=== PATIENT | female | born 1975 | race Hispanic/Latino ===

== ENCOUNTER 2021-07-26 21:02 | Emergency (ER) | payer MEDICAID, OTHER ==
[~2021-07-26] VITALS: Ht 152.4 cm; Wt 113.4 kg
[2021-07-26] MEDS ORDERED: ACETAMINOPHEN 500 MG TABLET PO ONE (23:00)
[2021-07-26 23:35] LABS: APPEARANCE,URINE Clear (CLEAR); BILIRUBIN,URINE Negative (NEGATIVE); COLOR,URINE Yellow (YELLOW); GLUCOSE, URINE (UA) Negative (NEGATIVE); KETONES,URINE Negative (NEGATIVE); LEUKOCYTE ESTERASE ,URINE Negative (NEGATIVE); NITRATE,URINE Negative (NEGATIVE); OCCULT BLOOD,URINE Negative (NEGATIVE); PH,URINE 5.5 (5.0-8.0); PROTEIN,URINE Negative (NEGATIVE); UROBILINOGEN,URINE 0.2 mg/dL (0.2-1.0)
[2021-07-26 23:36] LABS: HCG,QUAL RESULT NEGATIVE (NEGATIVE)
[2021-07-26] MEDS ORDERED: PHEN118L19 PO (23:54)
[2021-07-26] MEDS ORDERED: PSEU120T62 PO (23:54)
[2021-07-26] MEDS ORDERED: IBUP-2070 PO (23:54)
[2021-07-26] MEDS ORDERED: ALBU8.5H8 IH (23:54)
[2021-07-26] MEDS ORDERED: AZIT250T9 PO (23:54)
[2021-07-27 00:55] VITALS: BP 122/80
== END 2021-07-27 00:50 | disposition home or self-care (01) ==
LOC: EDH 21:02
DX: U07.1 COVID-19 (principal); Z79.1 Long term (current) use of non-steroidal anti-inflammatories (NSAID); Z79.899 Other long term (current) drug therapy
CPT/HCPCS: 81003; 81025; 87635; 87804 ×2; 87880; 99283; C9803

== ENCOUNTER 2023-06-17 19:35 | Emergency (ER) | payer MEDICAID, OTHER ==
[~2023-06-17] VITALS: Ht 160 cm; Wt 106.4 kg
[~2023-06-17 19:35] MED LIST: ALBU8.5H8 IH; AZIT250T9 PO; BENZ-39 PO; IBUP-2070 PO; IBUP-2071 PO; ONDA4TAB10 PO; PHEN118L19 PO; PSEU120T62 PO
[2023-06-17] MEDS ORDERED: ONDANSETRON ODT 4MG TAB ONE (19:48)
[2023-06-17 20:42] LABS: SARS-CoV-2, RNA, NAAT NEGATIVE SARS CoV-2 (NEGATIVE)
[2023-06-17 20:46] LABS: INFLUENZA TYPE A Negative For Type A (NEGATIVE); INFLUENZA TYPE B Negative For Type B (NEGATIVE)
[2023-06-18 00:32] VITALS: BP 128/70; PULSE 84; RESP 16; O2SAT 98
== END 2023-06-18 00:34 | disposition home or self-care (01) ==
LOC: EDH 19:35
DX: I25.10 Atherosclerotic heart disease of native coronary artery without angina pectoris (principal); E11.9 Type 2 diabetes mellitus without complications; Z20.822 Contact with and (suspected) exposure to COVID-19; Z79.899 Other long term (current) drug therapy
CPT/HCPCS: 99284; 96374; 87635; 84484 ×2; 87804 ×2; 93005; C9803